=== PATIENT | female | born 1995 | race Caucasian/White ===

== ENCOUNTER 2017-01-04 20:15 | Emergency (ER) | payer SELFPAY ==
[~2017-01-04] VITALS: Ht 167.6 cm; Wt 71.0 kg
[2017-01-04 20:17] VITALS: Ht 167.6 cm; Wt 71.0 kg
[2017-01-04 21:03] LABS: ADD SCAN DIFF NO
[2017-01-04 21:08] LABS: BASOPHILS % 0.5 % (0.0-2.0); EOSINOPHILS # 0.3 10^3/ul (0.0-0.5); EOSINOPHILS % 3.7 % (0.0-7.0); HEMATOCRIT 34.2 % (37.0-47.0); HEMOGLOBIN 11.1 g/dl (12.0-16.0); LYMPHOCYTES % 22.6 % (15.0-51.0); MEAN CORPUSCULAR HEMOGLOBIN 26.6 pg (29.0-33.0); MEAN CORPUSCULAR HGB CONC 32.5 g/dl (32.0-37.0); MEAN PLATELET VOLUME 10.9 fl (7.4-10.4); MONOCYTE # 0.5 10^3/ul (0.3-0.9); MONOCYTES % 5.9 % (0.0-11.0); NEUTROPHIL # 5.8 10^3/ul (1.6-7.5); NEUTROPHILS % 67.1 % (39.0-77.0); PLATELET COUNT 229 10^3/UL (140-415); RED BLOOD COUNT 4.17 10^6/ul (4.20-5.40); RED CELL DISTRIBUTION WIDTH 19.5 % (11.5-14.5); WHITE BLOOD COUNT 8.7 10^3/ul (4.8-10.8)
[2017-01-04 21:21] LABS: ADD UMIC YES; UR AMORPHOUS CRYSTAL FEW /HPF (NONE SEEN); UR ASCORBIC ACID NEGATIVE (NEGATIVE); UR BILIRUBIN (Dip) NEGATIVE (NEGATIVE); UR BLOOD (Dip) 1+ mg/dL (NEGATIVE); UR CLARITY CLOUDY (CLEAR); UR COLOR YELLOW (YELLOW); UR GLUCOSE (Dip) NEGATIVE (NEGATIVE); UR KETONES (Dip) NEGATIVE (NEGATIVE); UR LEUKOCYTE ESTERASE (Dip) 1+ Leu/ul (NEGATIVE); UR NITRITE (Dip) NEGATIVE (NEGATIVE); UR RBC 1 /HPF (0-5); UR SPECIFIC GRAVITY (Dip) 1.019 (1.003-1.030); UR TOTAL PROTEIN (Dip) NEGATIVE (NEGATIVE); UR UROBILINOGEN (Dip) NEGATIVE (NEGATIVE)
--- NOTE | 2017-01-04 22:37 | RADRPT ---
PROCEDURE: US OB. CLINICAL INDICATION: TECHNIQUE: Transabdominal and transvaginal views of the pelvis are available for review. COMPARISON: There are no similar studies submitted for comparison. FINDINGS: There is a single intrauterine gestational sac with mean sac diameter of 2.9 cm and pole with crown-rump length of 4.2 mm. This corresponds to an estimated gestational age of 7 weeks 1 day. A y olk sac is not definitely seen. There is no cardiac activity. The right ovary measures 2.7 x 2 x 1.6 cm. The left ovary measures 3.2 x 1.8 x 2.7 cm. Doppler ruben w is noted to the bilateral ovaries. There is no free fluid. IMPRESSION: Single intrauterine gestation of 7 weeks 1 day without cardiac activity. Findings are suggest alfredo of a failed gestation. Serial beta HCGs and follow-up to resolution are advised. Doppler flow to the bilateral ovaries. RPTAT: HIKT .Espinoza Darnell MD, MD Date Time Electronically viewed and signed by .Espinoza Darnell MD, on 01/04/2017 22:37 .T/
[2017-01-04] MEDS ORDERED: ACET325T33 PO (22:56)
[2017-01-04] MEDS ORDERED: NITR-58 PO (22:56)
[2017-01-04 23:10] VITALS: BP 118/70; PULSE 78; RESP 20; TEMP 98.5
--- NOTE | 2017-01-05 00:20 | ERD ---
ER Documentation Chief Complaint Date/Time DATE: 01/05/17 TIME: 00:17 Chief Complaint 12 weks , vagina bleeding today HPI 21-year-old female patient who is a presents the ED complaining of vaginal spotting that occurred earlier today. Patient has denies any vaginal discharge, dysuria, urgency, frequency, hematuria, abdominal pain, nausea, vomiting, chest pain, shortness of breath. Reports that her last menses was sometime 2 months ago is unsure of the exact date. Patient reports that she does not have an ELECTRICIAN ASSISTANT. ROS All systems reviewed and are negative except as per history of present illness. Medications Home Meds Active Scripts Nitrofurantoin Monohyd Macrocr* (Macrobid*) 100 Mg Capsr, 100 MG PO BID for 7 Days, CAP Prov:SHORTY AGUILERA PA-C 01/04/17 Acetaminophen* (Tylenol*) 325 Mg Tablet, 2 TAB PO Q8 Y for PAIN AND OR ELEVATED TEMP, #20 TAB Prov:SHORTY AGUILERA PA-C 01/04/17 Allergies Allergies: Coded Allergies: No Known Allergy (Unverified , 01/04/17) PMhx/Soc History of Surgery: No Anesthesia Reaction: No Hx Neurological Disorder: No Hx Respiratory Disorders: No Hx Cardiac Disorders: No Hx Psychiatric Problems: No Hx Miscellaneous Medical Probl: Yes (ANEMIA) Hx Alcohol Use: No Hx Substance Use: No Hx Tobacco Use: No Smoking Status: Never smoker Physical Exam Vitals Vital Signs Date Time Temp Pulse Resp B/P Pulse Ox O2 Delivery O2 Flow Rate FiO2 01/04/17 23:10 98.5 78 20 118/70 100 Room Air 01/04/17 20:17 98.7 75 20 117/64 100 Physical Exam Const: Lrr-ucx-xmpqzbwyf, well-nourished. In no acute distress. Head: Atraumatic, normocephalic Eyes: Normal Conjunctiva without injection. No purulent discharge. ENT: Normal external ear, nose. Moist oropharynx without tonsillar exudates. Non -erythematous pharynx. Uvula midline. No drooling. No trismus. Neck: No cervical midline tenderness. Full range of motion. No meningismus. No cervical lymphadenopathy. No JVD. Resp: Clear to auscultation bilaterally. No wheezing, rhonchi, rales, or crackles. No accessory muscle use. No retractions. Cardio: Regular rate and rhythm. No murmurs, rubs or gallops. Abd: Soft, abdominal/pelvic tenderness, non distended. Normal bowel sounds. No palpable masses. No rebound tenderness. No guarding. Negative McBurney's point. Negative psoas sign. Negative obturator sign. Skin: No petechiae or rashes Back: No midline tenderness. No CVA tenderness. Ext: No cyanosis, or edema. Neur: Awake and alert. Normal gait. Normal coordination. Psych: Normal Mood and Affect Results 24 hrs Laboratory Tests Test 01/04/17 20:56 White Blood Count 8.710^3/ul Red Blood Count 4.1710^6/ul Hemoglobin 11.1g/dl Hematocrit 34.2% Mean Corpuscular Volume 82.0fl Mean Corpuscular Hemoglobin 26.6pg Mean Corpuscular Hemoglobin Concent 32.5g/dl Red Cell Distribution Width 19.5% Platelet Count 64979^3/UL Mean Platelet Volume 10.9fl Neutrophils % 67.1% Lymphocytes % 22.6% Monocytes % 5.9% Eosinophils % 3.7% Basophils % 0.5% Nucleated Red Blood Cells % 0.0/100WBC Neutrophils # 5.810^3/ul Lymphocytes # 2.010^3/ul Monocytes # 0.510^3/ul Eosinophils # 0.310^3/ul Basophils # 0.010^3/ul Nucleated Red Blood Cells # 0.010^3/ul Urine Color YELLOW Urine Clarity CLOUDY Urine pH 7.0 Urine Specific [place] 1.019 Urine Ketones NEGATIVEmg/dL Urine Nitrite NEGATIVEmg/dL Urine Bilirubin NEGATIVEmg/dL Urine Urobilinogen NEGATIVEmg/dL Urine Leukocyte Esterase 1+Eugenie/ul Urine Microscopic RBC 1/HPF Urine Microscopic WBC 24/HPF Urine Amorphous Crystals FEW/HPF Urine Hemoglobin 1+mg/dL Urine Glucose NEGATIVEmg/dL Urine Total Protein NEGATIVEmg/dl Beta HCG, Quantitative 8442.4mIU/ml Procedures/MDM This is a 21-year-old female patient with no significant past medical history who is a presents the ED complaining of vaginal spotting. Patient is afebrile nontoxic appearing. Patient has normal vital signs. An ultrasound, beta-hCG, CBC, type and RH, UA was ordered to evaluate patient. CBC: No evidence of severe infection or anemia Urine: No elevation in nitrite. 1+ leukocyte esterase and WBC 24, no hematuria. Rh: A positive. No indication for Rhogam at this time. beta Hc.2 PROCEDURE: US OB. CLINICAL INDICATION: TECHNIQUE: Transabdominal and transvaginal views of the pelvis are available for review. COMPARISON: There are no similar studies submitted for comparison. FINDINGS: There is a single intrauterine gestational sac with mean sac diameter of 2.9 cm and pole with crown-rump length of 4.2 mm. This corresponds to an estimated gestational age of 7 weeks 1 day. A yolk sac is not definitely seen. There is no cardiac activity. The right ovary measures 2.7 x 2 x 1.6 cm. The left ovary measures 3.2 x 1.8 x 2.7 cm. Doppler flow is noted to the bilateral ovaries. There is no free fluid. IMPRESSION: Single intrauterine gestation of 7 weeks 1 day without cardiac activity. Findings are suggestive of a failed gestation. Serial beta HCGs and follow-up to resolution are advised. Doppler flow to the bilateral ovaries. Patient's bleeding symptoms have stabilized while in the department. Patient has a single IUP of 7 weeks and 1 day without cardiac activity. Patient could likely have a failed gestation however she is strictly instructed to follow-up with her ELECTRICIAN ASSISTANT for further evaluation and treatment. Low suspicion for symptomatic anemia, ectopic , sepsis, PID, appendicitis, ovarian torsion, tubo-ovarian abscess, surgical abdomen, or other emergent conditions. Patient was educated that there is a risk for threatened . Discharge medications: Macrobid, Tylenol Patient to follow up with ELECTRICIAN ASSISTANT in 2 days for further evaluation and treatment. Patient is to return sooner to the ED for any worsening symptoms. Patient's questions were answered. Patient understood and agreed with discharge plan. Departure Diagnosis: Primary Impression: Vaginal bleeding in patient at less than 20 weeks ges... Condition: Stable Patient Instructions: Miscarriage, Bleeding During Early Referrals: COMMUNITY CLINICS YOU HAVE RECEIVED A MEDICAL SCREENING EXAM AND THE RESULTS INDICATE THAT YOU DO NOT HAVE A CONDITION THAT REQUIRES URGENT TREATMENT IN THE EMERGENCY DEPARTMENT. FURTHER EVALUATION AND TREATMENT OF YOUR CONDITION CAN WAIT UNTIL YOU ARE SEEN IN YOUR DOCTORS OFFICE WITHIN THE NEXT 1-2 DAYS. IT IS YOUR RESPONSIBILITY TO MAKE AN APPOINTMENT FOR FOLOW-UP CARE. IF YOU HAVE A PRIMARY DOCTOR --you should call your primary doctor and schedule an appointment IF YOU DO NOT HAVE A PRIMARY DOCTOR YOU CAN CALL OUR PHYSICIAN REFERRAL HOTLINE AT IF YOU CAN NOT AFFORD TO SEE A PHYSICIAN YOU CAN CHOSE FROM THE FOLLOWING [facility] [address] [facility] [address] [facility] [address] [facility] [address] [facility] [address] [facility]. [facility] [address] [facility] [facility] YOU HAVE RECEIVED A MEDICAL SCREENING EXAM AND THE RESULTS INDICATE THAT YOU DO NOT HAVE A CONDITION THAT REQUIRES URGENT TREATMENT IN THE EMERGENCY DEPARTMENT. FURTHER EVALUATION AND TREATMENT OF YOUR CONDITION CAN WAIT UNTIL YOU ARE SEEN IN YOUR DOCTORS OFFICE WITHIN THE NEXT 1-2 DAYS. IT IS YOUR RESPONSIBILITY TO MAKE AN APPOINTMENT FOR [facility] CARE. IF YOU HAVE A PRIMARY DOCTOR --you should call your primary doctor and schedule and appointment IF YOU DO NOT HAVE A PRIMARY DOCTOR YOU CAN CALL OUR PHYSICIAN REFERRAL HOTLINE AT . IF YOU CAN NOT AFFORD TO SEE A PHYSICIAN YOU CAN CHOSE FROM THE FOLLOWING [facility]: [facility] [place] [address] [place] [address] [facility] [address] [place] [address] [facility] [address] [place] [address] [facility]ARE/SPECIALTIES ELECTRICIAN ASSIST[place] [address] [facility] [address] [place] [address] OFFICE FAX ESTEFANIA NEWBY [address] [place] [address] [facility] [address] [place], [place] [id number] ROPER, [facility] [address] [facility], [address], [place] [address] JOSUE QUINTERO [address] [facility], [place] [address] [facility] [address] [place] [address] [address] [facility] [place] [id number] - [address] PATTERSON ALLIE [address], [place] [address] [address]AIN, [place] [address] [facility]. [address], [place] [address] [address] [place], [facility] [address] [place], [place] [id number] [facility] Hours: 8:00 am - 5:00 pm Additional Instructions: Call your ELECTRICIAN ASSISTANT in 2 days for further evaluation and treatment to repeat ultrasound and beta hcg blood work.See the doctor sooner or return here if your condition worsens before your appointment time - worsening vaginal bleeding, fever, nausea, vomiting, diarrhea. SHORTY AGUILERA PA-C Jan 05, 2017 00:20 ultrasound and beta hcg blood work.See the doctor sooner or return here if your condition worsens before your appointment time - worsening vaginal bleeding, fever, nausea, vomiting, diarrhea. SHORTY AGUILERA PA-C Jan 05, 2017 00:20
== END 2017-01-04 23:11 | disposition home or self-care (01) ==
LOC: FTE 20:15
DX: O20.9 Hemorrhage in early pregnancy, unspecified (principal); R10.2 Pelvic and perineal pain; Z3A.01 Less than 8 weeks gestation of pregnancy
CPT/HCPCS: 36415; 76801; 76817; 81001; 84702; 85025; 86900; 86901